=== PATIENT | female | born 1970 | race Caucasian/White ===

== ENCOUNTER 2017-09-14 05:00 | Inpatient (IN) | payer SELFPAY ==
[2017-09-14] MEDS: fentaNYL PF VIAL 100 MCG/2 ML VIAL IV ×8 (05:21→22:26)
[2017-09-14] MEDS: ONDANSETRON PF 4 MG/2 ML VIAL. IV (05:22)
[2017-09-14] MEDS: IV NORMAL SALINE 1000ML BAG 1,000 ML IV (05:22)
[2017-09-14 05:23] LABS: ADD MAN DIFF? NO
[2017-09-14 05:27] LABS: URINE HCG POC HCG NEGATIVE (Negative)
[2017-09-14] MEDS: TAMSULOSIN 0.4 MG CAP.ER.24H. PO (05:30)
[2017-09-14 05:31] LABS: BASO % 0 % (0-3); EOS # 0.1 x10^3/uL (0.0-0.7); EOS % 1 % (0-3); HEMATOCRIT 41.8 % (36.0-47.0); LYMPH # 1.2 x10^3/uL (1.0-4.8); LYMPH % 14 % (24-48); MEAN CORPUSCULAR HEMOGLOBIN 29 pg (25-35); MEAN CORPUSCULAR HGB CONC 34 g/dL (31-37); MEAN CORPUSCULAR VOLUME 88 fL (79-100); MONO # 1.1 x10^3/uL (0.0-1.1); MONO % 12 % (0-9); NEUT # 6.4 x10^3uL (1.8-7.7); NEUT % 73 % (31-73); PLATELET COUNT 373 x10^3/uL (140-400); RED BLOOD COUNT 4.77 x10^6/uL (3.50-5.40); RED CELL DISTRIBUTION WIDTH 13.5 % (11.5-14.5); WHITE BLOOD COUNT 8.9 x10^3/uL (4.0-11.0)
[2017-09-14 05:36] LABS: ANION GAP 5 (6-14); BLOOD UREA NITROGEN 13 mg/dL (7-20); BUN/CREATININE RATIO 12 (6-20); CALCIUM 11.8 mg/dL (8.5-10.1); CARBON DIOXIDE 29 mmol/L (21-32); CHLORIDE 101 mmol/L (98-107); CREATININE 1.1 mg/dL (0.6-1.0); GFR 53.7; GLUCOSE 99 mg/dL (70-99); POTASSIUM 3.9 mmol/L (3.5-5.1); SODIUM 135 mmol/L (136-145)
[2017-09-14 05:42] LABS: ALBUMIN 4.1 g/dL (3.4-5.0); ALBUMIN/GLOBULIN RATIO 1.2 (1.0-1.7); ALK PHOS 77 U/L (46-116); ALT (SGPT) 26 U/L (14-59); AST (SGOT) 26 U/L (15-37); LIPASE 85 U/L (73-393); NEG OBC SER NEG; POS OBC SER POS; PREG TEST PT QUAL NEGATIVE (NEG); TOTAL BILIRUBIN 0.3 mg/dL (0.2-1.0); TOTAL PROTEIN 7.5 g/dL (6.4-8.2)
[2017-09-14] MEDS: HYDROmorphone 2 MG/ML VIAL IV ×2 (05:43→07:35)
[2017-09-14] MEDS: KETOROLAC 30 MG/ML INJ. IV (05:44)
[2017-09-14 05:47] LABS: BACTERIA,URINE 0 /HPF (0-FEW); BILIRUBIN,URINE NEGATIVE (NEG); CLARITY,URINE CLEAR; COLOR,URINE COLORLESS; GLUCOSE,URINE NEGATIVE (NEG); NITRITE,URINE NEGATIVE (NEG); PH,URINE 7.5; PROTEIN,URINE NEGATIVE (NEG-TRACE); RBC,URINE 0 /HPF (0-2); SQUAMOUS EPITHELIAL CELL,UR FEW /LPF; UROBILINOGEN,URINE 0.2 mg/dL (0.2 mg/dL)
[2017-09-14] MEDS ORDERED: ONDANSETRON PF 4 MG/2 ML VIAL. IV ×2 (09:30→13:45)
[2017-09-14] MEDS: PANTOPRAZOLE 40 MG TABLET.DR. PO ×2 (10:00→10:07)
[2017-09-14] MEDS: CIPROFLOXACIN 400MG PREMIX 200 ML IV ×2 (10:10→22:26)
[2017-09-14] MEDS ORDERED: PHENAZOPYRIDINE 200 MG TABLET. PO (10:30)
[2017-09-14] MEDS: POTASSIUM CL 20MEQ D5-0.45NACL 1,000 ML IV ×2 (10:46→19:00)
[2017-09-14] MEDS ORDERED: LIDOCAINE 2% JELLY 6ML IN APPLICATOR. (12:36)
[2017-09-14] MEDS ORDERED: CIPROFLOXACIN 400MG PREMIX 200 ML IV (13:00)
[2017-09-14] MEDS ORDERED: PROPOFOL 20 ML IV (13:01)
[2017-09-14] MEDS ORDERED: fentaNYL PF VIAL 100 MCG/2 ML VIAL ×2 (13:01→13:29)
[2017-09-14] MEDS ORDERED: DEXAMETHASONE SOD PHOS 20 MG/5 ML VIAL. (13:01)
[2017-09-14] MEDS ORDERED: LIDOCAINE 2% PF Vial for OR 5 ML VIAL. (13:01)
[2017-09-14] MEDS ORDERED: ONDANSETRON PF 4 MG/2 ML VIAL. (13:01)
[2017-09-14] MEDS ORDERED: LIDOCAINE 1% PF 2 ML VIAL. ID (13:45)
[2017-09-14] MEDS ORDERED: PROCHLORPERAZINE 10 MG/2 ML VIAL. IV (13:45)
[2017-09-14] MEDS ORDERED: MORPHINE SULFATE 4 MG/ML DISP.SYRIN. IV (13:45)
[2017-09-14] MEDS ORDERED: HYDROmorphone 2 MG/ML VIAL IV (13:45)
[2017-09-14] MEDS ORDERED: fentaNYL PF VIAL 100 MCG/2 ML VIAL IV ×2 (13:45)
[2017-09-14] MEDS: IV RINGERS,LACTATED 1000ML 1,000 ML IV ×2 (13:53→18:43)
[2017-09-14] MEDS: MORPHINE SULFATE 4 MG/ML DISP.SYRIN. IV ×2 (16:19→19:20)
[2017-09-14] MEDS: IOHEXOL 300 MG/ML 100ML VIAL. (17:32)
[2017-09-14] MEDS ORDERED: ePHEDrine PF IN SALINE 50 MG/5 ML DISP.SYRIN IV (17:47)
[2017-09-15] MEDS: POTASSIUM CL 20MEQ D5-0.45NACL 1,000 ML IV (03:40)
[2017-09-15] MEDS: CIPROFLOXACIN 400MG PREMIX 200 ML IV (09:09)
[2017-09-15] MEDS: PANTOPRAZOLE 40 MG TABLET.DR. PO (09:10)
[2017-09-15] MEDS: KETOROLAC 30 MG/ML INJ. IV (09:20)
[2017-09-15] MEDS ORDERED: oxyCODONE/APAP 7.5/325 1 TAB TABLET PO (09:30)
[2017-09-15] MEDS ORDERED: ONDANSETRON ODT 4 MG TAB.RAPDIS. PO (09:45)
[2017-09-15] MEDS: KETOROLAC TROMETHAMINE 10 MG TABLET PO (12:08)
== END 2017-09-15 13:15 | disposition home or self-care (01) | DRG 669 ==
LOC: ER 05:00 → 5 SOUTH 08:35
PROC: 0TC68ZZ Extirpation of Matter from Right Ureter, Via Natural or Artificial Opening Endoscopic (ICD-10-PCS; principal; 2017-09-14 17:32)
PROC: BT1D1ZZ Fluoroscopy of Right Kidney, Ureter and Bladder using Low Osmolar Contrast (ICD-10-PCS; 2017-09-14 17:32)
DX: N13.2 Hydronephrosis with renal and ureteral calculous obstruction (principal); Z98.82 Breast implant status
CPT/HCPCS: 36415; 74176; 76000; 80053; 81001; 81025; 83690; 84703; 85025; 96361; 96374; 96375; 96376; 99285; 99285-25; A7015; C1769; J0744; J1100; J1170; J1885; J2270; J2405; J2704; J3010; J7030; J7120; Q9967

== ENCOUNTER 2017-10-06 00:35 | Emergency (ER) | payer SELFPAY ==
[2017-10-06] MEDS: FAMOTIDINE 20 MG TABLET. PO (01:21)
[2017-10-06] MEDS: diphenhydrAMINE HCL 25 MG CAPSULE PO (01:21)
[2017-10-06] MEDS: methylPREDNISolone ACETATE 80 MG/ML VIAL. IM (01:48)
== END 2017-10-06 01:51 | disposition home or self-care (01) ==
LOC: ER 00:35
DX: L25.9 Unspecified contact dermatitis, unspecified cause (principal); L23.7 Allergic contact dermatitis due to plants, except food
CPT/HCPCS: 96372; 99283; J1040; Q0163

== ENCOUNTER 2020-09-22 20:20 | Emergency (ER) | payer OTHER ==
[~2020-09-22] VITALS: Ht 172.7 cm; Wt 63.6 kg
[~2020-09-22 20:20] MED LIST: HYDR25CA PO; PRED20TA PO
[2020-09-22 21:58] VITALS: BP 115/76
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
[2020-09-22] MEDS ORDERED: NAPR-514 PO (23:16)
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
[2020-09-22] MEDS ORDERED: NAPROXEN 500 MG TABLET PO ONE (23:30)
== END 2020-09-22 23:41 | disposition home or self-care (01) ==
LOC: ER 20:20
DX: M79.672 Pain in left foot (principal); M25.572 Pain in left ankle and joints of left foot
CPT/HCPCS: 29515; 73610; 73630; 99284

== ENCOUNTER 2021-06-21 18:00 | Emergency (ER) | payer SELFPAY ==
[~2021-06-21] VITALS: Ht 172.7 cm; Wt 60.8 kg
[~2021-06-21 18:00] MED LIST changes: +NAPR-514 PO
--- NOTE | 2021-06-21 18:47 | PHYS DOC ---
Past Medical History Past Medical History: Other Additional Past Medical Histor: kidney stones Past Surgical History: Other Additional Past Surgical Histo: breast implants, lithotripsy Smoking Status: Never Smoker Alcohol Use: Occasionally Drug Use: None General Adult EDM: Chief Complaint: FLU SYMPTOM HPI: HPI: Patient is a 51-year-old female that presents today with chest wall pain from coughing. Patient states that she has been sick for about 6 to 7 days and over the last 48 hours her chest wall has hurt when she is coughed, she states that this has been ongoing coughing for about 7 days and that her chest wall just hurts she says it is reproducible when she takes deep breaths and coughs and actually palpates her chest wall. Patient states that she has not had any Covid or influenza vaccines, and she does not smoke. Review of Systems: Review of Systems: Constitutional: Fever chills Eyes: Denies change in visual acuity. [] HENT: Denies nasal congestion or sore throat. [] Respiratory: Cough and chest wall pain denies shortness of breath. [] Cardiovascular: Denies chest pain or edema. [] GI: Denies abdominal pain, nausea, vomiting, bloody stools or diarrhea. [] : Denies dysuria. [] Musculoskeletal: Denies back pain or joint pain. [] Integument: Denies rash. [] Neurologic: Denies headache, focal weakness or sensory changes. [] Endocrine: Denies polyuria or polydipsia. [] Lymphatic: Denies swollen glands. [] Psychiatric: Denies depression or anxiety. [] Heart Score: C/O Chest Pain: N/A Risk Factors: Risk Factors: DM, Current or recent (<one month) smoker, HTN, HLP, family history of CAD, obesity. Risk Scores: Score 0 - 3: 2.5% MACE over next 6 weeks - Discharge Home Score 4 - 6: 20.3% MACE over next 6 weeks - Admit for Clinical Observation Score 7 - 10: 72.7% MACE over next 6 weeks - Early Invasive Strategies Allergies: Allergies: Allergies Coded Allergies Type Severity Reaction Last Updated Verified No Known Drug Allergies 09/14/17 No Physical Exam: PE: Constitutional: Well developed, well nourished, mild distress, non-toxic appearance. [] HENT: Normocephalic, atraumatic, bilateral external ears normal, oropharynx moist, no oral exudates, nose normal. [] Eyes: PERRLA, EOMI, conjunctiva normal, no discharge. [] Neck: Normal range of motion, no tenderness, supple, no stridor. [] Cardiovascular:Heart rate regular rhythm, no murmur [] Lungs & Thorax: Bilateral breath sounds diminished bases, cough present, chest wall pain with palpitation in right chest wall. Abdomen: Bowel sounds normal, soft, no tenderness, no masses, no pulsatile masses. [] Skin: Warm, dry, no erythema, no rash. [] Back: No tenderness, no CVA tenderness. [] Extremities: No tenderness, no cyanosis, no clubbing, ROM intact, no edema. [] Neurologic: Alert and oriented X 3, normal motor function, normal sensory function, no focal deficits noted. [] Psychologic: Affect normal, judgement normal, mood normal. [] Current Patient Data: Labs: Laboratory Tests Test 06/21/21 18:20 06/21/21 18:59 06/21/21 20:17 Influenza Type A Antigen Negative Influenza Type B Antigen Negative SARS-CoV-2 Antigen (Rapid) Negative Bedside Urine HCG, Qualitative Hcg negative White Blood Count 13.6 x10^3/uL Red Blood Count 4.13 x10^6/uL Hemoglobin 12.1 g/dL Hematocrit 35.6 % Mean Corpuscular Volume 86 fL Mean Corpuscular Hemoglobin 29 pg Mean Corpuscular Hemoglobin Concent 34 g/dL Red Cell Distribution Width 12.6 % Platelet Count 461 x10^3/uL Neutrophils (%) (Auto) 82 % Lymphocytes (%) (Auto) 10 % Monocytes (%) (Auto) 8 % Eosinophils (%) (Auto) 0 % Basophils (%) (Auto) 0 % Neutrophils # (Auto) 11.1 x10^3/uL Lymphocytes # (Auto) 1.3 x10^3/uL Monocytes # (Auto) 1.1 x10^3/uL Eosinophils # (Auto) 0.0 x10^3/uL Basophils # (Auto) 0.0 x10^3/uL Sodium Level 141 mmol/L Potassium Level 4.4 mmol/L Chloride Level 104 mmol/L Carbon Dioxide Level 24 mmol/L Anion Gap 13 Blood Urea Nitrogen 10 mg/dL Creatinine 0.7 mg/dL Estimated GFR (Cockcroft-Gault) 88.9 BUN/Creatinine Ratio 14 Glucose Level 107 mg/dL Calcium Level 11.2 mg/dL Total Bilirubin 0.2 mg/dL Aspartate Amino Transf (AST/SGOT) 19 U/L Alanine Aminotransferase (ALT/SGPT) 22 U/L Alkaline Phosphatase 98 U/L Total Protein 6.7 g/dL Albumin 3.1 g/dL Albumin/Globulin Ratio 0.9 Current Medications Medications (Trade) Dose Ordered Sig/Dede Route PRN Reason Start Time Stop Time Status Last Admin Dose Admin Benzonatate (Tessalon Perle) 100 mg 1X ONCE PO 06/21/21 19:00 06/21/21 19:01 DC 06/21/21 19:10 Ketorolac Tromethamine (Toradol Im) 60 mg 1X ONCE IM 06/21/21 19:00 06/21/21 19:01 DC 06/21/21 19:10 Albuterol Sulfate (Ventolin Neb Soln) 2.5 mg 1X ONCE NEB 06/21/21 19:30 06/21/21 19:35 DC Acetaminophen (Tylenol) 650 mg 1X ONCE PO 06/21/21 19:45 06/21/21 19:46 DC Albuterol Sulfate (Ventolin Hfa) 1 puff 1X ONCE INH 06/21/21 20:00 06/21/21 20:01 DC 06/21/21 20:16 Iohexol (Omnipaque 350 Mg/ml) 100 ml 1X ONCE IV 06/21/21 21:45 06/21/21 21:39 DC Info (CONTRAST GIVEN -- Rx MONITORING) 1 each PRN DAILY PRN MC SEE COMMENTS 06/21/21 21:45 06/21/21 21:39 DC Laboratory Tests Test 06/21/21 18:20 Influenza Type A Antigen Negative Influenza Type B Antigen Negative SARS-CoV-2 Antigen (Rapid) Negative Vital Signs: Vital Signs Date Time Temp Pulse Resp B/P (MAP) Pulse Ox O2 Delivery O2 Flow Rate FiO2 06/21/21 20:44 101 126/63 (84) 99 Room Air 06/21/21 20:14 105 123/66 (85) 98 Room Air 06/21/21 18:05 101.1 123 26 131/61 (84) 96 Room Air 101.1 Vital Signs Date Time Temp Pulse Resp B/P (MAP) Pulse Ox O2 Delivery O2 Flow Rate FiO2 06/21/21 18:05 101.1 123 26 131/61 (84) 96 Room Air 101.1 EKG: EKG: EKG done at [address] Reynoso at 2045 shows normal sinus rhythm with no ectopy at a rate of 96, QTc is 415 ms no STEMI [] Radiology/Procedures: Radiology/Procedures: REASON: cough and chest wall pain PROCEDURE: CHEST AP ONLY Exam Date: 06/21/2021 7:20 PM XR CHEST 1V Indication: Reason: cough and chest wall pain / Spl. Instructions: / History: . FINDINGS/ IMPRESSION: Mild left basilar subsegmental atelectasis and/or early infiltrate is noted. Follow-up imaging to resolution is recommended following treatment. The cardiac silhouette and pulmonary vasculature are within normal limits. There is no appreciable pleural effusion or pneumothorax. Electronically signed by: Lonny Gill MD (06/21/2021 8:03 PM) [facility][] Course & Med Decision Making: Course & Med Decision Making Pertinent Labs and Imaging studies reviewed. (See chart for details) 2140 CT went to the room to get patient further scan, patient was not in the room, her monitor leads were in the bed along with her blood pressure cuff, her gown was in the bed and her clothes were gone. Patient eloped before the remaining of her exam can be completed. Patient did leave with saline lock in place security was notified. Sherley Disclaimer: Sherley Disclaimer: This electronic medical record was generated, in whole or in part, using a voice recognition dictation system. Departure Departure Disposition: 07 LEFT AWOL/ELOPED Condition: STABLE Referrals: NO PCP (PCP) JAY TSANG APRN Jun 21, 2021 18:47
[2021-06-21 18:51] LABS: INFLUENZA A PATIENT NEGATIVE (NEGATIVE); INFLUENZA B PATIENT NEGATIVE (NEGATIVE)
[2021-06-21] MEDS ORDERED: KETOROLAC 60 MG/2 ML VIAL. IM ONE (19:00)
[2021-06-21] MEDS ORDERED: BENZONATATE 100 MG CAPSULE. PO ONE (19:00)
[2021-06-21] MEDS ORDERED: ALBUTEROL SULFATE 2.5 MG/3 ML NEBU. NEB ONE (19:30)
[2021-06-21] MEDS ORDERED: ACETAMINOPHEN 325 MG TABLET. PO ONE (19:45)
[2021-06-21] MEDS ORDERED: ALBUTEROL SULFATE 8GM INHALER. INH ONE (20:00)
--- NOTE | 2021-06-21 20:05 | RAD ---
Exam Date: 06/21/2021 7:20 PM XR CHEST 1V Indication: Reason: cough and chest wall pain / Spl. Instructions: / History: . FINDINGS/ IMPRESSION: Mild left basilar subsegmental atelectasis and/or early infiltrate is noted. Follow-up imaging to re solution is recommended following treatment. The cardiac silhouette and pulmonary vasculature are within normal limits. There is no appreciable pleural effusion or pneumothorax. Electronically signed by: Lonny Gill MD (06/21/2021 8:03 PM) [facility]
[2021-06-21 20:44] VITALS: BP 126/63
[2021-06-21 20:47] LABS: BASO % 0 % (0-3); EOS % 0 % (0-3); HEMATOCRIT 35.6 % (36.0-47.0); HEMOGLOBIN 12.1 g/dL (12.0-15.5); LYMPH # 1.3 x10^3/uL (1.0-4.8); LYMPH % 10 % (24-48); MEAN CORPUSCULAR HEMOGLOBIN 29 pg (25-35); MEAN CORPUSCULAR HGB CONC 34 g/dL (31-37); MEAN CORPUSCULAR VOLUME 86 fL (79-100); MONO # 1.1 x10^3/uL (0.0-1.1); MONO % 8 % (0-9); NEUT # 11.1 x10^3/uL (1.8-7.7); NEUT % 82 % (31-73); PLATELET COUNT 461 x10^3/uL (140-400); RED BLOOD COUNT 4.13 x10^6/uL (3.50-5.40); RED CELL DISTRIBUTION WIDTH 12.6 % (11.5-14.5); WHITE BLOOD COUNT 13.6 x10^3/uL (4.0-11.0)
[2021-06-21 20:55] LABS: CALCIUM 11.2 mg/dL (8.5-10.1); CREATININE 0.7 mg/dL (0.6-1.0); GFR 88.9; POTASSIUM 4.4 mmol/L (3.5-5.1)
[2021-06-21 21:01] LABS: ALBUMIN 3.1 g/dL (3.4-5.0); ALBUMIN/GLOBULIN RATIO 0.9 (1.0-1.7); TOTAL BILIRUBIN 0.2 mg/dL (0.2-1.0); TOTAL PROTEIN 6.7 g/dL (6.4-8.2)
[2021-06-21] MEDS ORDERED: IOHEXOL 350 MG/ML 100 ML VIAL. IV ONE (21:45)
[2021-06-21] MEDS ORDERED: CONTRAST GIVEN. MC PRN (21:45)
--- NOTE | 2021-06-22 07:00 | EKG ---
[facility] [address] [place] [address] Test Date: 2021-06-21 Test Time: 20:41:07 Pat Name: DIANNE PEDRO Department: Room: Gender: F [employer] Research [employer]: : 1970 Requested By: JAY TSANG Order Number: [id number] Reading MD: Jerry Melissa MD Measurements Intervals [place] Rate: 96 P: ID: QRS: 64 QRSD: 84 T: 52 QT: 328 QTc: 415 Interpretive Statements SR NON-SPECIFIC ST/T CHANGES Electronically Signed On 06-22-2021 9:24:01 [employer] by Jerry Melissa MD
--- NOTE | 2021-06-22 17:23 | NUR ---
IP: Attempted to contact pt concerning covid results. No answer, left a voicemail to return the call. Addendum: 06/22/21 at 1732 by LOBITO QUESADA RN Pt returned my call. Informed her of negative covid test. She verbalized understanding.
== END 2021-06-21 21:39 | disposition left against medical advice (07) ==
LOC: ER 18:00
DX: R07.89 Other chest pain (principal); Z20.822 Contact with and (suspected) exposure to COVID-19; R05.9 Cough, unspecified; R50.9 Fever, unspecified
CPT/HCPCS: 36415; 71045; 80053; 81025; 84484; 85025; 87428; 93005; 96372; 99285; J1885; U0003; U0005